=== PATIENT | female | born 1970 | race Caucasian/White ===

== ENCOUNTER 2023-07-09 05:45 | Day surgery (SDC) | payer BC ==
[~2023-07-09] VITALS: Ht 147.3 cm; Wt 65.8 kg
[2023-07-09 06:36] LABS: HCG,QUAL RESULT NEGATIVE (NEGATIVE)
[2023-07-09] MEDS ORDERED: ceFAZolin SODIUM 2 GM in D5W 100 ML IV ONE (07:00)
[2023-07-09 07:02] VITALS: PULSE 66; RESP 20; TEMP 98; O2SAT 99
[2023-07-09] MEDS ORDERED: fentaNYL CITRATE/PF 100 MCG/2 ML AMP ONE (07:36)
[2023-07-09] MEDS ORDERED: ACETAMINOPHEN I.V. 1000 MG 100 ML IV ONE (07:38)
[2023-07-09] MEDS ORDERED: PROPOFOL 200MG/ 20ML VIAL (DIPRIVAN) IV ONE (07:51)
[2023-07-09] MEDS ORDERED: BUPIVACAINE /PF 0.25% 30 ML VIAL INJ ONE (07:51)
[2023-07-09] MEDS ORDERED: SEVOFLURANE 15 MIN GAS INH ONE (07:51)
[2023-07-09] MEDS ORDERED: LR 1,000 ML IV.SOLN IV ONE (07:51)
[2023-07-09] MEDS ORDERED: ROCURONIUM BROMIDE 10 MG/ML (ZEMURON) ONE (07:51)
[2023-07-09] MEDS ORDERED: DEXAMETHASONE SOD PHOSPHATE 4 MG/ML VIAL ONE (07:51)
[2023-07-09] MEDS ORDERED: DOPamine PREMIX 400 MG/250 ML BTL IV ONE (07:51)
[2023-07-09] MEDS ORDERED: SUCCINYLCHOLINE CHLORIDE 20 MG/ML(QUELICIN) ONE (07:51)
[2023-07-09] MEDS ORDERED: NS 1000 ML IV.SOLN IV ONE (07:51)
[2023-07-09] MEDS ORDERED: KETOROLAC TROMETHAMINE 30 MG VIAL ONE (07:51)
[2023-07-09] MEDS ORDERED: fentaNYL CITRATE/PF 100 MCG/2 ML AMP IVP PRN (08:00)
[2023-07-09] MEDS ORDERED: HYDROmorphone 1 MG/ML INJ. CARTRIDGE IVP PRN ×2 (08:00)
[2023-07-09] MEDS ORDERED: LR 1,000 ML IV ONE (08:00)
[2023-07-09] MEDS ORDERED: ONDANSETRON HCL 4 MG/2 ML VIAL IVP PRN (08:00)
[2023-07-09] MEDS ORDERED: HYDROcodone/ACETAMIN 5-325 MG TAB (NORCO/ VICODIN) PO PRN ×2 (09:15)
[2023-07-09] MEDS ORDERED: D5/0.45 NS 1,000 ML IV SCH (09:15)
[2023-07-09] MEDS ORDERED: HYDROmorphone 1 MG/ML INJ. CARTRIDGE ONE (10:07)
[2023-07-09] MEDS ORDERED: ONDANSETRON HCL 4 MG/2 ML VIAL ONE (10:11)
[2023-07-09 10:37] VITALS: BP_SYST 110
== END 2023-07-09 12:44 | disposition home or self-care (01) ==
LOC: SMU 05:45 → SDS 05:45
PROVIDERS: ATTEND Colon & Rectal Surgery
DX: K80.10 Calculus of gallbladder with chronic cholecystitis without obstruction (principal); E66.9 Obesity, unspecified; Z80.0 Family history of malignant neoplasm of digestive organs; Z80.3 Family history of malignant neoplasm of breast; Z68.34 Body mass index [BMI] 34.0-34.9, adult
CPT/HCPCS: 87081; 47563; 84703; 88304; J3490; J1100; J1885; J2405; J2704; J0330; J3010; J1170; Q9967; J7060; J7120; J7030; J1265; C1758; C1727; J0131; 76000